=== PATIENT | female | born 1985 | race Caucasian/White ===

== ENCOUNTER 2018-08-15 09:37 | Emergency (ER) | payer MEDICAID ==
[~2018-08-15] VITALS: Ht 175.3 cm; Wt 90.9 kg
[2018-08-15] MEDS ORDERED: ZOLOFT 50MG50 MG PO (09:49)
[2018-08-15 10:34] LABS: HEMATOCRIT 43.5 % (37.0-47.0); HEMOGLOBIN 14.2 g/dL (12.5-16.0); MEAN CELL VOLUME 86 fl (78-100); MEAN CORPUSCULAR HEMOGLOBIN 28 pg (27-31); MEAN CORPUSCULAR HGB CONC 33 g/dL (33-37); MEAN PLATELET VOLUME 9.2 fl (7.4-10.4); PLATELET COUNT 359 K/mm3 (130-400); RED BLOOD COUNT 5.04 M/mm3 (4.10-5.30); RED CELL DISTRIBUTION WIDTH 12.9 % (11.5-14.5); WHITE BLOOD COUNT 11.7 K/mm3 (4.8-10.8)
[2018-08-15 10:49] LABS: LYMPHOCYTE 7 % (20-51); MONOCYTE 10 % (3-10); NEUTROPHILS 83 % (42-75)
[2018-08-15] MEDS ORDERED: PREDNISONE20 M1 PO (11:04)
[2018-08-15] MEDS ORDERED: AMOXICILLIN AND1 TA2 PO (11:04)
[2018-08-15 11:33] VITALS: BP 118/68
== END 2018-08-15 11:30 | disposition home or self-care (01) ==
LOC: ED 09:37
PROVIDERS: Family Medicine
DX: H65.93 Unspecified nonsuppurative otitis media, bilateral (principal); F41.9 Anxiety disorder, unspecified; F32.9 Major depressive disorder, single episode, unspecified
CPT/HCPCS: J1885; J7512